=== PATIENT | male | born 1970 | race Two or more races ===

== ENCOUNTER 2021-06-14 12:42 | Emergency (ER) | payer OTHER ==
[~2021-06-14] VITALS: Ht 175.3 cm; Wt 90.7 kg
== END 2021-06-14 17:44 ==
LOC: ER 12:42
DX: S83.91XA Sprain of unspecified site of right knee, initial encounter (principal); X58.XXXA Exposure to other specified factors, initial encounter; Y93.89 Activity, other specified; Y92.9 Unspecified place or not applicable; M79.661 Pain in right lower leg; Z88.8 Allergy status to other drugs, medicaments and biological substances; Z91.013 Allergy to seafood